=== PATIENT | female | born 1970 | race Caucasian/White ===

== ENCOUNTER 2019-02-01 05:39 | Inpatient (IN) | payer OTHER ==
[~2019-02-01] VITALS: Ht 160 cm; Wt 101.6 kg
[~2019-02-01 05:39] MED LIST: CALCIUM500 M1 PO; CHLORTHALIDONE25 MG PO; ERYTHROMYCIN E3.5 G3 OPHTHALMIC; FLEXERIL PO; HYDROCODONE-APA1 TA1 PO; NORVASC10 MG PO; OMEPRAZOLE40 MG PO; PREDNISONE50 MG PO; PROAIR HFA8.5 GM INH
[2019-02-01 05:41] VITALS: BP 119/68
[2019-02-01 06:23] LABS: HEMOGLOBIN 12.4 gm/dL (12.0-15.0); MCH 23.6 pg (26.0-34.0); MCHC 31.7 g/dL (28.0-37.0); MCV 74.4 fL (80.0-100.0); MPV 7.7 fl. (7.2-11.1); NUCLEATED RBCS 0 /100WBC; PLATELET COUNT* 241 thou/uL (150-400); RBC 5.25 mil/uL (4.20-5.00); RDW-CV 17.3 % (10.5-14.5); WBC 6.1 thou/uL (4.0-11.0)
[2019-02-01 06:34] LABS: INFLUENZA A ANTIGEN None Detected (None Detect); INFLUENZA B ANTIGEN None Detected (None Detect)
[2019-02-01 06:37] LABS: ALBUMIN 3.7 g/dL (3.4-5.0); CREATININE 1.1 mg/dL (0.6-1.3); POTASSIUM 3.9 mmol/L (3.5-5.1); TOTAL BILIRUBIN 0.3 mg/dL (<0.1-1.0); TOTAL PROTEIN 7.9 g/dL (6.4-8.2)
[2019-02-01 07:04] LABS: ABSOLUTE LYMPHOCYTES 0.4 thou/uL (0.8-5.3); ABSOLUTE MONOCYTES 0.2 thou/uL (0.0-1.2); ABSOLUTE NEUTROPHILS 5.5 thou/uL (1.6-8.1)
[2019-02-01 07:05] LABS: ANISOCYTOSIS 1+; PLATELET ESTIMATE ADEQUATE; POIKILOCYTOSIS 1+
[2019-02-01 10:12] VITALS: BP 107/43
[2019-02-01 16:55] VITALS: BP 109/58
[2019-02-01 20:00] VITALS: BP 122/57
[2019-02-01 23:30] LABS: URINE BILIRUBIN NEGATIVE (Negative); URINE BLOOD 3+ (Negative); URINE CLARITY CLEAR; URINE COLOR YELLOW; URINE GLUCOSE-RANDOM NEGATIVE (Negative); URINE KETONES NEGATIVE (Negative); URINE LEUKOCYTES-REFLEX NEGATIVE (Negative); URINE NITRITE-REFLEX NEGATIVE (Negative); URINE PROTEIN NEGATIVE (Negative); URINE SPECIFIC GRAVITY 1.025 (1.005-1.030); URINE UROBILINOGEN 0.2 E.U./dl (0.2-1.0)
[2019-02-01 23:47] LABS: AMP/METHAMP Negative (Negative); BARBITURATES Negative (Negative); BENZODIAZEPINES Negative (Negative); COCAINE Negative (Negative); METHADONE Negative (Negative); OPIATES Negative (Negative); PCP Negative (Negative); THC POSITIVE (Negative)
[2019-02-01 23:54] LABS: CASTS None Seen /LPF (None Seen); CRYSTALS None Seen /LPF (None Seen); MUCUS 0-3 Light strn/LPF (None Seen); SQUAMOUS 0-3 Few /LPF (0-3); URINE RBC 3-10 Few /HPF (0-2); URINE WBC-REFLEX None Seen /HPF (0-5)
[2019-02-02 01:11] VITALS: BP 153/83
[2019-02-02 04:00] VITALS: BP 136/57
[2019-02-02 04:34] LABS: ABSOLUTE LYMPHOCYTES 0.4 thou/uL (0.8-5.3); ABSOLUTE MONOCYTES 0.3 thou/uL (0.0-1.2); BASOPHILS 0.6 %; HEMATOCRIT 34.2 % (37.0-47.0); LYMPHOCYTES 6.5 %; MCH 23.9 pg (26.0-34.0); MCHC 32.1 g/dL (28.0-37.0); MCV 74.6 fL (80.0-100.0); MONOCYTES 5.4 %; MPV 7.6 fl. (7.2-11.1); NUCLEATED RBCS 0 /100WBC; PLATELET COUNT* 203 thou/uL (150-400); POLYS 87.5 %; RBC 4.59 mil/uL (4.20-5.00); RDW-CV 17.6 % (10.5-14.5); WBC 5.7 thou/uL (4.0-11.0)
[2019-02-02 04:54] LABS: CALCIUM 8.2 mg/dL (8.5-10.1); MAGNESIUM 1.8 mg/dL (1.8-2.4); POTASSIUM 3.5 mmol/L (3.5-5.1)
[2019-02-02 08:00] VITALS: BP 105/66
[2019-02-02 11:19] VITALS: BP 138/78
[2019-02-02 16:00] VITALS: BP 138/78; BP 138/81
[2019-02-02 20:17] VITALS: BP 133/85
[2019-02-03] VITALS: BP 121/66
[2019-02-03 04:08] VITALS: BP 108/56
[2019-02-03 05:19] LABS: ABSOLUTE LYMPHOCYTES 0.6 thou/uL (0.8-5.3); ABSOLUTE MONOCYTES 0.2 thou/uL (0.0-1.2); ABSOLUTE NEUTROPHILS 2.7 thou/uL (1.6-8.1); BASOPHILS 0.2 %; HEMATOCRIT 36.2 % (37.0-47.0); HEMOGLOBIN 11.6 gm/dL (12.0-15.0); LYMPHOCYTES 18.2 %; MCH 23.9 pg (26.0-34.0); MCV 74.7 fL (80.0-100.0); MONOCYTES 4.4 %; MPV 7.9 fl. (7.2-11.1); NUCLEATED RBCS 0 /100WBC; PLATELET COUNT* 159 thou/uL (150-400); POLYS 77.2 %; RBC 4.84 mil/uL (4.20-5.00); RDW-CV 17.4 % (10.5-14.5); WBC 3.5 thou/uL (4.0-11.0)
[2019-02-03 05:38] LABS: CALCIUM 7.9 mg/dL (8.5-10.1); CREATININE 0.9 mg/dL (0.6-1.3); POTASSIUM 3.8 mmol/L (3.5-5.1)
[2019-02-03 08:00] VITALS: BP 127/72
[2019-02-03 12:00] VITALS: BP 115/62
[2019-02-03 16:00] VITALS: BP 122/70
[2019-02-03 20:36] VITALS: BP 122/71
[2019-02-04] VITALS: BP 115/65
[2019-02-04 04:00] VITALS: BP 106/61
[2019-02-04 04:55] LABS: HEMATOCRIT 34.5 % (37.0-47.0); MCH 23.9 pg (26.0-34.0); MCHC 32.1 g/dL (28.0-37.0); MCV 74.4 fL (80.0-100.0); MPV 7.5 fl. (7.2-11.1); NUCLEATED RBCS 0 /100WBC; PLATELET COUNT* 141 thou/uL (150-400); RBC 4.63 mil/uL (4.20-5.00); RDW-CV 17.5 % (10.5-14.5)
[2019-02-04 05:06] LABS: CALCIUM 8.3 mg/dL (8.5-10.1); CREATININE 0.8 mg/dL (0.6-1.3); POTASSIUM 4.4 mmol/L (3.5-5.1)
[2019-02-04 08:00] VITALS: BP 124/79
[2019-02-04 12:00] VITALS: BP 126/77
--- NOTE | 2019-02-04 14:53 | EKG ---
[place] [address] ELECTROCARDIOGRAM REPORT Name: SANDIP CAREY Room: [address] ADM IN M.R.#: [id number] Admission: 02/01/19 Attend Phys: Sayda Pro MD Discharge: Date of : 72 Report #: [id number] THIS REPORT FOR: //name// [facility] Test Date: 2019-02-01 Test Time: 22:01:08 Pat Name: SANDIP CAREY Department: Room: [address] Gender: F [employer]: [facility] 1970 Requested By: Sayda Pro Order Number: [id number] Tony MD: Anthony Madsen Measurements Intervals [place] Rate: 128 P: 65 AK: 143 QRS: 38 QRSD: 84 T: -70 QT: 327 QTc: 477 Interpretive Statements Sinus tachycardia Low voltage, precordial leads Nonspecific T abnormalities, inferior leads No previous ECG available for comparison Electronically Signed On 02-04-2019 14:53:27 CDT by Anthony Madsen [email or web address] <ELECTRONICALLY SIGNED> By: Anthony Madsen MD, [facility] 02/04/19 1453 00 00 Anthony Madsen MD, FAC /EPI
[2019-02-04 15:38] LABS: ABSOLUTE LYMPHOCYTES 0.3 thou/uL (0.8-5.3); ABSOLUTE MONOCYTES 0.1 thou/uL (0.0-1.2); ABSOLUTE NEUTROPHILS 0.7 thou/uL (1.6-8.1)
[2019-02-04 15:39] LABS: PLATELET ESTIMATE DECREASED
[2019-02-04 15:40] LABS: ANISOCYTOSIS Occasional; MICROCYTES 1+
[2019-02-04 15:41] LABS: HYPOCHROMASIA Occasional
[2019-02-04 16:11] VITALS: BP 141/80
[2019-02-04 20:52] VITALS: BP 114/75
[2019-02-05] VITALS: BP 117/62
[2019-02-05 04:13] VITALS: BP 129/67
[2019-02-05 04:22] LABS: ABSOLUTE LYMPHOCYTES 0.5 thou/uL (0.8-5.3); ABSOLUTE MONOCYTES 0.2 thou/uL (0.0-1.2); ABSOLUTE NEUTROPHILS 0.9 thou/uL (1.6-8.1); BASOPHILS 0.1 %; HEMATOCRIT 35.3 % (37.0-47.0); HEMOGLOBIN 11.2 gm/dL (12.0-15.0); LYMPHOCYTES 30.4 %; MCH 23.7 pg (26.0-34.0); MCHC 31.7 g/dL (28.0-37.0); MCV 74.6 fL (80.0-100.0); MONOCYTES 13.9 %; MPV 7.8 fl. (7.2-11.1); NUCLEATED RBCS 0 /100WBC; PLATELET COUNT* 150 thou/uL (150-400); POLYS 55.6 %; RBC 4.73 mil/uL (4.20-5.00); RDW-CV 17.6 % (10.5-14.5)
[2019-02-05 04:48] LABS: WBC 1.7 thou/uL (4.0-11.0)
[2019-02-05 04:53] LABS: ALBUMIN 2.8 g/dL (3.4-5.0); CALCIUM 8.3 mg/dL (8.5-10.1); CREATININE 0.8 mg/dL (0.6-1.3); POTASSIUM 3.7 mmol/L (3.5-5.1); TOTAL BILIRUBIN 0.2 mg/dL (<0.1-1.0); TOTAL PROTEIN 6.4 g/dL (6.4-8.2)
[2019-02-05 08:00] VITALS: BP 128/92
[2019-02-05 12:19] VITALS: BP 143/77
[2019-02-05 16:46] VITALS: BP 147/86
[2019-02-05 20:29] VITALS: BP 100/54
[2019-02-06 00:26] VITALS: BP 107/56
[2019-02-06 04:00] VITALS: BP 173/86
[2019-02-06 06:11] LABS: ABSOLUTE LYMPHOCYTES 0.9 thou/uL (0.8-5.3); ABSOLUTE MONOCYTES 0.3 thou/uL (0.0-1.2); ABSOLUTE NEUTROPHILS 0.8 thou/uL (1.6-8.1); BASOPHILS 0.8 %; HEMATOCRIT 37.8 % (37.0-47.0); HEMOGLOBIN 12.1 gm/dL (12.0-15.0); LYMPHOCYTES 44.9 %; MCH 23.6 pg (26.0-34.0); MCHC 31.9 g/dL (28.0-37.0); MCV 73.8 fL (80.0-100.0); MONOCYTES 15.6 %; MPV 7.5 fl. (7.2-11.1); NUCLEATED RBCS 0 /100WBC; PLATELET COUNT* 181 thou/uL (150-400); POLYS 38.7 %; RBC 5.12 mil/uL (4.20-5.00); RDW-CV 17.7 % (10.5-14.5)
[2019-02-06 10:00] VITALS: BP 137/83
[2019-02-06] MEDS ORDERED: LEVAQUIN 750 M750 MG PO (11:25)
[2019-02-06] MEDS ORDERED: VENTOLIN HFA 1818 GM INH (11:25)
[2019-02-06] MEDS ORDERED: PREDNISONE 10 M10 MG PO (11:25)
[2019-02-06] MEDS ORDERED: MUCINEX600 MG PO (11:25)
[2019-02-06 12:15] VITALS: BP 137/83
== END 2019-02-06 12:30 | disposition home or self-care (01) | DRG 871 ==
LOC: M.ERS 05:39 → M.2W 09:31 → M.TBA-ER 09:31 → M.2W 10:26
PROVIDERS: Internal Medicine Hematology & Oncology; Personal Emergency Response Attendant; ADMIT Family Medicine
DX: A41.9 Sepsis, unspecified organism (principal); J15.9 Unspecified bacterial pneumonia; J96.01 Acute respiratory failure with hypoxia; N17.9 Acute kidney failure, unspecified; D61.818 Other pancytopenia; J44.0 Chronic obstructive pulmonary disease with (acute) lower respiratory infection; J44.1 Chronic obstructive pulmonary disease with (acute) exacerbation; G47.33 Obstructive sleep apnea (adult) (pediatric); I12.9 Hypertensive chronic kidney disease with stage 1 through stage 4 chronic kidney disease, or unspecified chronic kidney disease; N18.3 Chronic kidney disease, stage 3 (moderate); F17.210 Nicotine dependence, cigarettes, uncomplicated; Z98.891 History of uterine scar from previous surgery; Z79.899 Other long term (current) drug therapy; Z88.5 Allergy status to narcotic agent; Z88.8 Allergy status to other drugs, medicaments and biological substances; Z71.6 Tobacco abuse counseling

== ENCOUNTER 2019-08-21 22:33 | Emergency (ER) | payer OTHER ==
[~2019-08-21] VITALS: Ht 157.5 cm; Wt 108.9 kg
[~2019-08-21 22:33] MED LIST changes: +LEVAQUIN 750 M750 MG PO; +MUCINEX600 MG PO; +PREDNISONE 10 M10 MG PO; +VENTOLIN HFA 1818 GM INH
[2019-08-21] MEDS ORDERED: NEURONTIN 300300 M1 PO (22:45)
[2019-08-21] MEDS ORDERED: NORCO 5-325 TA1 EAC1 PO (23:06)
[2019-08-21] MEDS ORDERED: PREDNISONE 20 M20 M1 PO (23:06)
[2019-08-21 23:19] VITALS: BP 150/45
== END 2019-08-21 23:20 | disposition home or self-care (01) ==
LOC: M.ERS 22:33
DX: M72.2 Plantar fascial fibromatosis (principal); I10 Essential (primary) hypertension; F17.210 Nicotine dependence, cigarettes, uncomplicated; Z88.1 Allergy status to other antibiotic agents; Z88.5 Allergy status to narcotic agent; Z98.890 Other specified postprocedural states

== ENCOUNTER 2020-07-22 15:27 | Emergency (ER) | payer OTHER ==
[~2020-07-22] VITALS: Ht 160 cm; Wt 104.3 kg
[~2020-07-22 15:27] MED LIST changes: +NEURONTIN 300300 M1 PO; +NORCO 5-325 TA1 EAC1 PO; +PREDNISONE 20 M20 M1 PO
[2020-07-22] MEDS ORDERED: GABAPENTIN100 MG PO (15:35)
[2020-07-22] MEDS ORDERED: COZAAR 25 MG TA25 M1 PO (15:35)
[2020-07-22] MEDS ORDERED: FLEXERIL PO (15:35)
[2020-07-22 16:12] LABS: URINE BILIRUBIN NEGATIVE (Negative); URINE BLOOD TRACE (Negative); URINE CLARITY CLEAR; URINE COLOR YELLOW; URINE GLUCOSE-RANDOM NEGATIVE (Negative); URINE KETONES NEGATIVE (Negative); URINE LEUKOCYTES-REFLEX NEGATIVE (Negative); URINE NITRITE-REFLEX NEGATIVE (Negative); URINE PROTEIN NEGATIVE (Negative); URINE SPECIFIC GRAVITY >= 1.030 (1.005-1.030)
[2020-07-22 16:23] LABS: ABSOLUTE EOSINOPHILS 0.2 thou/uL (0.0-0.7); ABSOLUTE LYMPHOCYTES 1.8 thou/uL (0.8-5.3); ABSOLUTE MONOCYTES 0.4 thou/uL (0.0-1.2); ABSOLUTE NEUTROPHILS 3.7 thou/uL (1.6-8.1); BASOPHILS 0.8 %; EOSINOPHILS 2.5 %; HEMATOCRIT 44.8 % (37.0-47.0); HEMOGLOBIN 15.4 gm/dL (12.0-15.0); MCH 29.9 pg (26.0-34.0); MCHC 34.3 g/dL (28.0-37.0); MCV 87.4 fL (80.0-100.0); MONOCYTES 6.4 %; MPV 7.9 fl. (7.2-11.1); NUCLEATED RBCS 0 /100WBC; PLATELET COUNT* 212 thou/uL (150-400); POLYS 60.3 %; RBC 5.13 mil/uL (4.20-5.00); RDW-CV 14.5 % (10.5-14.5); WBC 6.2 thou/uL (4.0-11.0)
[2020-07-22 16:30] LABS: CALCIUM 8.5 mg/dL (8.5-10.1); CREATININE 0.8 mg/dL (0.6-1.3); POTASSIUM 3.8 mmol/L (3.5-5.1)
[2020-07-22 16:34] LABS: ALBUMIN 3.5 g/dL (3.4-5.0); TOTAL BILIRUBIN 0.2 mg/dL (<0.1-1.0); TOTAL PROTEIN 7.3 g/dL (6.4-8.2)
[2020-07-22] MEDS ORDERED: NORCO 5-325 TA1 EAC2 PO (17:46)
[2020-07-22 17:59] VITALS: BP 138/75
== END 2020-07-22 18:00 | disposition home or self-care (01) ==
LOC: M.ERS 15:27
PROVIDERS: Family Medicine; Nurse Practitioner Family
DX: R10.31 Right lower quadrant pain (principal); R10.84 Generalized abdominal pain; I10 Essential (primary) hypertension; F17.210 Nicotine dependence, cigarettes, uncomplicated; Z98.890 Other specified postprocedural states; Z90.49 Acquired absence of other specified parts of digestive tract; Z88.1 Allergy status to other antibiotic agents; Z88.6 Allergy status to analgesic agent